=== PATIENT | male | born 1960 | race Caucasian/White ===

== ENCOUNTER 2023-04-22 13:04 | Inpatient (IN) | payer OTHER, SELFPAY ==
[2023-04-22 13:07] VITALS: BP 120/58; PULSE 63; RESP 14; TEMP 36.8; O2SAT 97
[2023-04-22 13:08] VITALS: BMI 26.3
--- NOTE | 2023-04-22 13:18 | EX.ED.DYSGE1 ---
HPI History of Present Illness Chief Complaint: [facility] Home Medications NK 04/22/23 [History Last Taken Unknown] Allergy/AdvReac Type Severity Reaction Status Date / Time propofol Allergy Severe OTHER Verified 04/22/23 13:06 azithromycin Allergy Vomiting Verified 06/04/15 12:25 [From Zithromax Z-Tristan] Surgical History no surgical history Social History Smoking Status: Never smoker EXAM Physical Exam Const Vital Signs: 04/22/23 13:07 04/22/23 13:56 04/22/23 14:20 Temperature 98.2 F Temperature Source Temporal Pulse Rate 63 Respiratory Rate 14 Respiratory Effort Normal Non-Labored Blood Pressure 120/58 L Blood Pressure Mean 78 Pulse Ox 97 95 Oxygen Delivery Method Room Air Room Air MDM MDM MDM Narrative Medical decision making narrative: HISTORY OF PRESENT ILLNESS: 62-year-old male here with concern for diffuse weakness, dizziness concern for low potassium and sodium. He states he has been ill with viral URI last week. Notes this morning developed 4 episodes of nonbloody nonbilious vomitus. Denies any chest pain or abdominal pain. Notes diarrhea as well. Denies any melena or hematochezia. Denies any focal weakness but notes diffuse weakness and fatigue. He states he went to his doctor this morning and they [facility] and they called stated his electrolytes were dangerously low and request the present to the ED. REVIEW OF SYSTEMS: Pertinent positives: Dizziness, diffuse weakness, nausea vomiting, diarrhea Pertinent negatives: Chest pain, abdominal pain, focal weakness PHYSICAL EXAM: Nursing triage notes reviewed, Vital signs reviewed Constitutional: please see mdm HENT: MMM Eyes: Pupils equal round and reactive to light, Extraocular muscles intact Neck: No stridor, no JVD, full neck ROM Lungs: Clear to auscultation, No wheezing or rales. No increased work of breathing, no conversational dyspnea, no accessory muscle use, no nasal flaring. No respiratory distress noted Heart: Regular rate and rhythm, No murmurs, No rubs and No gallops, 2+ distal pulses (radial, femoral, posterior tibial) in all extremities Abdomen: Soft, there is no tenderness, rigidity, rebound or guarding, no obvious peritoneal signs, no palpable pulsatile abdominal masses, no auscultated abdominal bruit : No CVAT Extremities: No edema Neuro: Alert and oriented x3, neuro exam at baseline, cranial nerves II through XII are intact. No pain with extraocular muscle movement. There is negative test of skew. 5 of 5 strength in upper and lower extremities in flexion extension. Intact sensation to light touch in upper and lower extremity dermatomes. No truncal or extremity ataxia. No dysdiadochokinesia. Normal gait. 2+ reflexes in upper and lower extremities. No meningeal signs. Negative Babinski. NIH of 0. Skin: No rash or lesions noted MEDICAL DECISION MAKING: Chief Complaint: Dizziness, weakness, abnormal labs External records reviewed: Prior chemistries reviewed prior potassium was 3.4, sodium 131 in June 2015. CMP from [facility] shows sodium 116, potassium 3.5 Factors affecting care: hyponatremia Social determinants of health: none History obtained from others: none Consults: internal medicine MDM Narrative: Patient was hemodynamically stable, afebrile, exam without focal neurologic deficit. I considered the following differential diagnosis: Electrolyte disturbance, dehydration, ACS, arrhythmia, anemia, CVA Patient no focal neurologic deficits. No focal weakness. His NIH was 0. Suspicion for CVA at this time. ALL IMAGES (IF OBTAINED) HAVE BEEN PERSONALLY REVIEWED AND INTERPRETED BY MYSELF. EKG with normal sinus rhythm, normal axis, normal intervals, no STEMI CBC with no leukocytosis to suggest systemic inflammation, mild anemia, no thrombocytopenia BMP with severe hyponatremia, no other significant electrolyte abnormalities, anion gap no KP High-sensitivity troponin is negative, no evidence of myocardial ischemia The synthesis of the patient's labs, images history and physical consistent with severe electrolyte abnormality likely from GI losses. Gave normal saline to start sodium repletion. Admitted for ongoing sodium replacement. The patient and/or family, caregivers express understanding. The patient and/or family, caregivers agrees with the plan. Shared decision making: I will have a discussion with the patient and or visitors regarding risk/benefits of further testing or admission. They will be made aware of of the risk/benefits inherent in this decision they will be given the opportunity to voice understanding. Total critical care time today provided was at least 0 minutes. This excludes separately billable procedures. Critical care time (if documented) is secondary to the patient having high probability of clinically significant/life threatening deterioration in the patient's condition which required my urgent intervention. Impression: 1. Hyponatremia 2. Nausea and vomiting 3. Anemia Dispo: Admit to PCU Lab Data Attestation: I reviewed the patient's lab results. Labs: Laboratory Results - last 24 hr 04/22/23 13:20 WBC 6.7 RBC 4.13 L Hgb 11.7 L Hct 32.9 L MCV 79.7 L MCH 28.3 MCHC 35.6 RDW Std Deviation 35.7 RDW Coeff of Karis 12.4 Plt Count 220 MPV 10.8 Immature Gran % (Auto) 0.600 Neut % (Auto) 69.3 Lymph % (Auto) 13.0 L [place] % (Auto) 13.5 H Eos % (Auto) 3.0 Baso % (Auto) 0.6 Absolute Neuts (auto) 4.6 Absolute Lymphs (auto) 0.87 Nucleated RBC % 0 Sodium 119 L* Potassium 4.0 Chloride 83 L Carbon Dioxide 27.0 Anion Gap 9 BUN 9 Creatinine 0.78 Est GFR (MDRD) Af Amer 128 Est GFR (MDRD) Non-Af 106 BUN/Creatinine Ratio 11.5 Glucose 110 H Calcium 9.5 Troponin I High Sens 6 Radiography Diagnostic Testing: Clinical Impression(s) from Imaging Studies Chest X-Ray 04/22/23 13:45 IMPRESSION: Stable hyperinflation with no acute or active cardiopulmonary disease. Electronically Signed: Migue Oneill MD at 14:19 EST , Discharge Plan Triage Chief Complaint: Abn Labs ED Provider: Asaf Corrales Dx/Rx/DC Orders Prescriptions: No Action NK Primary Care Provider: Devyn Ahn Referrals: Devyn Ahn MD [Primary Care Provider] -
--- NOTE | 2023-04-22 13:31 | EKG12_ITS ---
Test Reason : SOB Blood Pressure : / mmHG Vent. Rate : 070 BPM Atrial Rate : 070 BPM P-R Int : 184 ms QRS Dur : 092 ms QT Int : 448 ms P-R-T Axes : 053 058 042 degrees QTc Int : 483 ms Normal sinus rhythm Normal ECG Confirmed by ARCHIE CORDERO, HUAN ([id number]), newspaper copy editor ANJALI ULRICH ([id number]) on 04/24/2023 12:46:41 PM Referred By: Confirmed By:HUAN ALMANZA MD
[2023-04-22] MEDS: 0.9% Normal Saline (1000mL) 1,000 ML 1000 ML IV (13:41)
[2023-04-22 13:42] LABS: Absolute Lymphocyte Count 0.87 X10^3/uL (0.83-4.51); Absolute Neutrophil Count 4.6 X10^3/uL (2.0-7.7); Basophil# 0.04 X10^3/uL; Basophil% 0.6 % (0-1); Hematocrit 32.9 % (40-54); Hemoglobin 11.7 g/dL (13.0-16.5); Lymphocyte # 0.87 X10^3/ul (0.83-4.51); Mean Corp Hgb Conc 35.6 g/dL (32-36); Mean Corpuscular Hgb 28.3 pg (27.0-32.0); Mean Corpuscular Volume 79.7 fL (80-94); Mean Platelet Vol. 10.8 fl (6.2-12.0); Monocyte% 13.5 % (0-10); NRBC Flagged by Analyzer 0 % (0-5); Neutrophil # 4.62 X10^3/uL (2.7-7.7); Neutrophil % 69.3 % (47-70); Platelet Count 220 K/mm3 (150-450); RBC Distribution Width CV 12.4 % (11.6-14.6); RBC Distribution Width SD 35.7 fl (35.1-43.9); Red Blood Count 4.13 M/mm3 (4.6-6.2); White Blood Count 6.7 K/mm3 (4.4-11.0)
--- NOTE | 2023-04-22 13:45 | RAD_ITS ---
STUDY: X-RAY CHEST REASON FOR EXAM: Male, 62 years old. Fatigue. Weakness. TECHNIQUE: Single frontal view of the chest. COMPARISON: June 04, 2015. FINDINGS: Stable hyperinflation. There is no demonstrated pleural abnormality. Normal size heart. Normal mediastinum and irving. Normal visualized pulmonary arteries. Normal visualized aortic arch and descending thoracic aorta. Normal visualized thoracic spine. Normal visualized ribs, clavicles, and shoulders. No abnormality of the visualized soft tissue structures of the upper abdomen. RAD/Chest 1 View (Portable) IMPRESSION: Stable hyperinflation with no acute or active cardiopulmonary disease. Electronically Signed: Migue Oneill MD at 14:19 EST ,
[2023-04-22 14:18] LABS: Anion Gap 9 (5-15); BUN 9 mg/dL (7-18); BUN/Creat Ratio 11.5 RATIO (10-20); Calcium,Total 9.5 mg/dL (8.5-10.1); Chloride 83 mmol/L (98-107); Creatinine, Serum 0.78 mg/dL (0.70-1.30); EST Glomerular Filtration Rate 106 mL/min (>60); Est Glom Filt Rate - Afr Amer 128 mL/min (>60); Glucose 110 mg/dL (74-106); Sodium Level 119 mmol/L (136-145); Troponin-I HS 6 pg/mL (3.0-78.0)
[2023-04-22 14:20] VITALS: O2SAT 95
[2023-04-22 15:26] VITALS: BP 131/77; PULSE 64; RESP 15; RESP 16; TEMP 36.1; O2SAT 95
--- NOTE | 2023-04-22 15:35 | PCM.HP.STD ---
HPI - General General Date of Admission: 04/22/23 Date of Service: 04/22/23 Chief Complaint: Generalized weakness, nasal congestion HPI Narrative JASWANT HORTON, is a 62y/oM presented to [facility] 04/22 with weakness, dizziness and recent labs with low sodium. Patient had been ill with URI sx last week and this morning had 4 episodes of emesis. Yesterday he went to his physician and they [facility] and called him today stating his electrolytes were dangerously low and advised patient present to emergency department. In the ED he was found to have low sodium of 119 and given the degree of his hyponatremia with unclear chronicity hospitalist contacted for admission. Patient evaluated in ED with at bedside. Patient reports that he has generally felt unwell since last Saturday when he developed nasal congestion with significant secretions and sinus tenderness, initially also had a sore throat and has had an intermittent cough with some yellow-green sputum though not as much over the past day. Has also had some intermittent diarrhea over this past week. Has only taken Mucinex with only mild improvement. Went to PCP yesterday due to still feeling generally unwell and labs drawn and he was instructed to come back today. Patient has not been on any antibiotics, reports this morning that he did have an episode of sounded nausea and vomited 4 times in a row but had not had that before or after. Patient has had no fever. did have similar illness for several days but hers resolved completely without difficulty. [facility] Home Medications NK 04/22/23 [History Last Taken Unknown] Allergy/AdvReac Type Severity Reaction Status Date / Time propofol Allergy Severe OTHER Verified 04/22/23 15:38 azithromycin Allergy Vomiting Verified 04/22/23 15:38 [From Zithromax Z-Tristan] Surgical History no surgical history Social History Smoking Status: Never smoker ROS ROS Narrative General: Denies fever/chills HENT: Headache resolved, sore throat resolved but has significant nasal congestion EYES: Denies changes in vision Resp: Cough less productive than it had been, denies shortness of breath Cardiac: Denies chest pain GI: Denies abdominal pain, intermittent diarrhea, has had no further nausea or vomiting : Denies changes in urination Extremity: Denies swelling MSK: Generalized weakness Neuro: Denies any numbness/tingling Heme: Denies any bleeding or bruising Skin: Denies rashes Psychiatric: No complaints voiced Vital Signs Vital Signs Vital Signs: 04/22/23 13:07 04/22/23 13:56 04/22/23 14:20 Temperature 98.2 F Temperature Source Temporal Pulse Rate 63 Respiratory Rate 14 Respiratory Effort Normal Non-Labored Blood Pressure 120/58 L Blood Pressure Mean 78 Pulse Ox 97 95 Oxygen Delivery Method Room Air Room Air 04/22/23 15:26 04/22/23 15:26 Temperature 97 F L Temperature Source Pulse Rate 64 Respiratory Rate 15 16 Respiratory Effort Blood Pressure 131/77 H Blood Pressure Mean 95 Pulse Ox 95 Oxygen Delivery Method Physical Exam Narrative General: Alert, oriented, appears to feel unwell HEENT: Atraumatic, normocephalic, no erythema in throat, does have significant nasal congestion and possibly some sinus tenderness Eyes: Anicteric, normal conjunctiva, extraocular movements grossly intact Neck: Supple Respiratory: Clear to auscultation bilaterally, normal respiratory effort Cardiovascular: Regular rate and rhythm GI: Soft, nontender, nondistended Extremities: No edema Musculoskeletal: Moving all extremities Neuro: No overt focal neurological deficits Skin: No rashes appreciated Psych: Cooperative Results Lab / Micro Data 04/22/23 13:20 04/22/23 13:20 Labs: Laboratory Results - last 24 hr 04/22/23 13:20: WBC 6.7, RBC 4.13 L, Hgb 11.7 L, Hct 32.9 L, MCV 79.7 L, MCH 28.3, MCHC 35.6, RDW Std Deviation 35.7, RDW Coeff of Karis 12.4, Plt Count 220, MPV 10.8, Immature Gran % (Auto) 0.600, Neut % (Auto) 69.3, Lymph % (Auto) 13.0 L, [place] % (Auto) 13.5 H, Eos % (Auto) 3.0, Baso % (Auto) 0.6, Absolute Neuts (auto) 4.6, Absolute Lymphs (auto) 0.87, Nucleated RBC % 0, Sodium 119 L*, Potassium 4.0, Chloride 83 L, Carbon Dioxide 27.0, Anion Gap 9, BUN 9, Creatinine 0.78, Est GFR (MDRD) Af Amer 128, Est GFR (MDRD) Non-Af 106, BUN/Creatinine Ratio 11.5, Glucose 110 H, Calcium 9.5, Troponin I High Sens 6 Imagaing Radiology Impression Chest X-Ray 04/22/23 13:45 IMPRESSION: Stable hyperinflation with no acute or active cardiopulmonary disease. Electronically Signed: Migue Oneill MD at 14:19 EST , Assessment & Plan Assessment/Plan (1) Hyponatremia: PLAN: Plan #Generalized weakness and dizziness 2/2 hyponatremia -Sodium 119 in ED, unclear chronicity as last sodium Was 131 from 2016 -Possibly volume depletion given his diarrhea, poor p.o. intake due to his URI symptoms and his emesis -No recent sodium values available -We will get urine and serum osmole's -Urine studies -BMPs every 4 -I's and O's #URI symptoms -Patient has had symptoms for 6 days and did not have the classic improved then worsened that 1 would expect with bacterial and has not met the 10-day threshold -If symptoms worsen or continue to not improve may need to start empiric antibiotics however suspect this is viral -Obtain respiratory and COVID panels -Given diarrhea is a secondary complaint and is often on and seems to be associated with upper respiratory symptoms do not think the patient needs stool studies at this time the low threshold to do so if he has further episodes #DVT ppx: Lovenox subcu Nova Sheppard MD Time spent in the patient's overall evaluation,decision-making process, review of diagnostic data, adjustment of management, discussion with other providers, nursing nursing and ancillary staff involved in patient's care documentation, 55minutes Charges/Coding Visit Charges Inpatient E&M: 66388 Init Hosp L2
[2023-04-22 16:43] VITALS: PULSE 62; RESP 16; TEMP 36.1; O2SAT 96
[2023-04-22 16:47] VITALS: BMI 26.3
[2023-04-22 17:02] VITALS: BP 140/78; PULSE 62; RESP 16; TEMP 36.1; O2SAT 97
[2023-04-22 20:35] LABS: Anion Gap 7 (5-15); BUN 7 mg/dL (7-18); Calcium,Total 8.7 mg/dL (8.5-10.1); Chloride 85 mmol/L (98-107); Creatinine, Serum 0.64 mg/dL (0.70-1.30); EST Glomerular Filtration Rate 134 mL/min (>60); Est Glom Filt Rate - Afr Amer 163 mL/min (>60); Estimated Creatinine Clearance 127.99 ml/min; Glucose 112 mg/dL (74-106); Potassium 3.9 mmol/L (3.5-5.1); Sodium Level 118 mmol/L (136-145)
[2023-04-22 22:12] LABS: Osmolality, Serum 240 mOsm/KG (280-301)
[2023-04-22 22:27] VITALS: BP 124/61; PULSE 61; RESP 16; TEMP 37.3; O2SAT 94
[2023-04-22] MEDS: 0.9% Normal Saline (1000mL) 1,000 ML 70 ML IV (22:33)
[2023-04-22] MEDS: guaiFENesin 1,200 MG Tablet 1200 MG PO (22:36)
[2023-04-22 23:02] LABS: Urea Nitrogen, Urine 359 mg/dL (NO RANGE EST.); Urine Chloride 138 mmol/L (Not Establ.); Urine Sodium 139 mmol/L (Not Establ.)
[2023-04-22 23:12] LABS: Osmolality, Urine 481 mOsm/KG
[2023-04-23 02:01] LABS: Anion Gap 7 (5-15); BUN 6 mg/dL (7-18); BUN/Creat Ratio 9.5 RATIO (10-20); Calcium,Total 8.6 mg/dL (8.5-10.1); Chloride 84 mmol/L (98-107); Creatinine, Serum 0.63 mg/dL (0.70-1.30); EST Glomerular Filtration Rate 136 mL/min (>60); Est Glom Filt Rate - Afr Amer 165 mL/min (>60); Estimated Creatinine Clearance 130.02 ml/min; Glucose 103 mg/dL (74-106); Potassium 3.5 mmol/L (3.5-5.1); Sodium Level 118 mmol/L (136-145)
[2023-04-23] MEDS: 0.9% Normal Saline (1000mL) 1,000 ML 100 ML IV (02:55)
[2023-04-23 04:35] VITALS: BP 138/93; PULSE 61; RESP 18; TEMP 36.8; O2SAT 93
[2023-04-23 07:26] LABS: Absolute Lymphocyte Count 0.96 X10^3/uL (0.83-4.51); Absolute Neutrophil Count 3.7 X10^3/uL (2.0-7.7); Basophil# 0.05 X10^3/uL; Basophil% 0.9 % (0-1); Eosinophil# 0.15 X10^3/uL; Eosinophils% 2.7 % (0-5); Hematocrit 28.7 % (40-54); Hemoglobin 10.3 g/dL (13.0-16.5); Lymphocyte # 0.96 X10^3/ul (0.83-4.51); Lymphocyte % 17.1 % (19-41); Mean Corp Hgb Conc 35.9 g/dL (32-36); Mean Corpuscular Hgb 28.3 pg (27.0-32.0); Mean Corpuscular Volume 78.8 fL (80-94); Mean Platelet Vol. 10.5 fl (6.2-12.0); Monocyte# 0.73 X10^3/uL; NRBC Flagged by Analyzer 0 % (0-5); Neutrophil # 3.68 X10^3/uL (2.7-7.7); Neutrophil % 65.4 % (47-70); Platelet Count 186 K/mm3 (150-450); RBC Distribution Width CV 12.3 % (11.6-14.6); RBC Distribution Width SD 35.3 fl (35.1-43.9); Red Blood Count 3.64 M/mm3 (4.6-6.2); White Blood Count 5.6 K/mm3 (4.4-11.0)
[2023-04-23] MEDS: guaiFENesin 1,200 MG Tablet 1200 MG PO ×2 (08:02→21:31)
[2023-04-23] MEDS: Enoxaparin 40 MG/0.4 ML Syringe SC (08:02)
[2023-04-23 08:08] VITALS: BP 135/80; PULSE 58; RESP 16; TEMP 36.6; O2SAT 93
[2023-04-23 08:16] LABS: Anion Gap 6 (5-15); BUN 6 mg/dL (7-18); BUN/Creat Ratio 9.8 RATIO (10-20); Calcium,Total 8.7 mg/dL (8.5-10.1); Chloride 86 mmol/L (98-107); Creatinine, Serum 0.61 mg/dL (0.70-1.30); EST Glomerular Filtration Rate 141 mL/min (>60); Est Glom Filt Rate - Afr Amer 171 mL/min (>60); Estimated Creatinine Clearance 134.28 ml/min; Glucose 108 mg/dL (74-106); Magnesium 1.9 mg/dL (1.6-2.6); Potassium 3.6 mmol/L (3.5-5.1); Sodium Level 118 mmol/L (136-145)
--- NOTE | 2023-04-23 11:40 | PCM.PN.HOSP ---
Subjective Subjective Continues to have URI symptoms however respiratory panel is normal. No improvement in his sodium Objective Data Objective Data Vital Signs: Vital Signs Temp Pulse Resp BP Pulse Ox O2 Del Method 97.8 F 58 L 16 135/80 H 93 Room Air 04/23/23 08:08 04/23/23 08:08 04/23/23 08:08 04/23/23 08:08 04/23/23 08:08 04/23/23 08:41 Oxygen Delivery Method Room Air Weight: 194 lb 0.108 oz Body Mass Index (BMI) 26.3 Intake & Output: Intake and Output for Last 24 Hours 04/22/23 04/23/23 04/24/23 03:59 03:59 03:59 Intake Total 1220 / 1220 636.33 / 636.33 Balance 1220 / 1220 636.33 / 636.33 Lab / Micro Data 04/23/23 07:05 04/23/23 07:05 Labs: Laboratory Results - last 24 hr 04/22/23 13:20: WBC 6.7, RBC 4.13 L, Hgb 11.7 L, Hct 32.9 L, MCV 79.7 L, MCH 28.3, MCHC 35.6, RDW Std Deviation 35.7, RDW Coeff of Karis 12.4, Plt Count 220, MPV 10.8, Immature Gran % (Auto) 0.600, Neut % (Auto) 69.3, Lymph % (Auto) 13.0 L, [place] % (Auto) 13.5 H, Eos % (Auto) 3.0, Baso % (Auto) 0.6, Absolute Neuts (auto) 4.6, Absolute Lymphs (auto) 0.87, Nucleated RBC % 0, Sodium 119 L*, Potassium 4.0, Chloride 83 L, Carbon Dioxide 27.0, Anion Gap 9, BUN 9, Creatinine 0.78, Est GFR (MDRD) Af Amer 128, Est GFR (MDRD) Non-Af 106, BUN/Creatinine Ratio 11.5, Glucose 110 H, Calcium 9.5, Magnesium 2.0, Troponin I High Sens 6 04/22/23 19:53: Sodium 118 L*, Potassium 3.9, Chloride 85 L, Carbon Dioxide 26.0, Anion Gap 7, BUN 7, Creatinine 0.64 L, Estim Creat Clear Calc 127.99, Est GFR (MDRD) Af Amer 163, Est GFR (MDRD) Non-Af 134, BUN/Creatinine Ratio 11.0, Glucose 112 H, Calcium 8.7 04/22/23 20:20: Urine Osmolality 481, Ur Random Sodium 139, Urine Creatinine 68.80, Urine Potassium 24.0, Urine Chloride 138, Urine Urea Nitrogen 359 04/22/23 21:03: Serum Osmolality 240 L 04/23/23 01:20: Sodium 118 L*, Potassium 3.5, Chloride 84 L, Carbon Dioxide 27.0, Anion Gap 7, BUN 6 L, Creatinine 0.63 L, Estim Creat Clear Calc 130.02, Est GFR (MDRD) Af Amer 165, Est GFR (MDRD) Non-Af 136, BUN/Creatinine Ratio 9.5 L, Glucose 103, Calcium 8.6 04/23/23 07:05: WBC 5.6, RBC 3.64 L, Hgb 10.3 L, Hct 28.7 L, MCV 78.8 L, MCH 28.3, MCHC 35.9, RDW Std Deviation 35.3, RDW Coeff of Karis 12.3, Plt Count 186, MPV 10.5, Immature Gran % (Auto) 0.900, Neut % (Auto) 65.4, Lymph % (Auto) 17.1 L, [place] % (Auto) 13.0 H, Eos % (Auto) 2.7, Baso % (Auto) 0.9, Absolute Neuts (auto) 3.7, Absolute Lymphs (auto) 0.96, Nucleated RBC % 0, Sodium 118 L*, Potassium 3.6, Chloride 86 L, Carbon Dioxide 26.0, Anion Gap 6, BUN 6 L, Creatinine 0.61 L, Estim Creat Clear Calc 134.28, Est GFR (MDRD) Af Amer 171, Est GFR (MDRD) Non-Af 141, BUN/Creatinine Ratio 9.8 L, Glucose 108 H, Calcium 8.7, Phosphorus 3.0, Magnesium 1.9, TSH 0.90 Micro: Microbiology 04/22/23 17:30 Mucosa - Nose Respiratory Panel (PCR) - Final Radiography Diagnostic Testing: Radiology Impression Chest X-Ray 04/22/23 13:45 IMPRESSION: Stable hyperinflation with no acute or active cardiopulmonary disease. Electronically Signed: Migue Oneill MD at 14:19 EST , Physical Exam Narrative General: Alert, Oriented x3, Cooperative, No apparent distress HEENT: Atraumatic, PERRLA, EOMI, Normocephalic, nasal congestion Oral: Moist Mucosa Neck: Supple, No JVD Lungs: Clear to auscultation, Normal air movement, No rhonchi, No wheeze, No rales Cardiovascular: Regular rate, Regular Rhythm, Normal S1, Normal S2, No murmurs Abdomen: Soft, Non Tender, Non-Distended, No Hepato-splenomegaly Extremities: No edema, Capillary Refill Less than 3 Seconds Skin: No rashes, No breakdown Musculoskeletal: No Tenderness to Palpation of Joints or Extremities Neurological: Cranial nerves II-XII grossly intact, Motor Exam 5/5 strength throughout, Sensory exam intact to light touch and pain Psych/Mental Status: Normal Affect, Appropriate Assessment & Plan Assessment/Plan (1) Hyponatremia: PLAN: Plan 1. 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 Urine sodium is elevated with a low serum osmolality and elevated urine osmolality ? We will place him on a fluid restriction and discontinue his IV fluids ? We will continue to monitor sodium repeat in the morning 2. URI ? Likely viral though COVID and flu testing was negative as well as a respiratory panel prior to admission. ? No fevers and no leukocytosis ? Does not appear that he got better then got worse so unclear whether or not he has a bacterial cause DVT: [employer] Charges/Coding Visit Charges Inpatient E&M: 69034 Subs Hosp L2
[2023-04-23 14:00] VITALS: BP 132/68; PULSE 55; RESP 17; TEMP 36.8; O2SAT 93
--- NOTE | 2023-04-23 14:15 | CASEMGMT ---
RN?CM?BOILER FIREMAN?CM?to room for initial transition planning/care coordination?assessment.?Pt resting in bed, sleeping. at bedside. RN?CM?introduced self and role at [facility].? voices understanding and consents to?assessment?at this time.? Care providers, pharmacy, and demographics verified/updated at this time with . Pt did wake up @ end of assessment and provided some additional info. PCP: Pt used to see Dr Ahn, but last seen was about 10 years ago. Initially stated to see if he would take pt back again, but then pt woke up and stated he would prefer not to go back to him. Pt and given local PCP directory to review and instructed to let CM know if they need/want assistance w/getting an appt to get established w/a new PCP. Specialists: none Preferred Pharmacy: [facility] Retail Insurance: Medical [place] Prescription Benefit:?Yes Living Will/HPOA:?Has both LW and HCPOA, who is his , Dionne LNOK: , Dionne Living Arrangements: Lives w/his in ranch-style home w/1-3 steps to enter. Independent. Transportation:?Pt and DME: ? Denies using any DME and denies needs.? HHC/SNF:No hx of either, denies needs, and no needs identified. Pt wishes to return home and states has no concerns with going home at time of discharge.? CM?to follow for any further discharge planning/needs.? Pt and voice no further concerns/needs at this time.? Advised them to ask for?CM?if any further questions/concerns/needs arise.? They voice understanding. PLAN:??Home Nico SCOTTN?RN?CM
--- NOTE | 2023-04-23 14:20 | CHAPLAIN ---
Type of Pastoral Visit _x__ Initial Visit ___ Follow-up Visit ___ On-call Visit ___ General Patient Visit ___ Spiritual Assessment ___ Family Conference ___ Bereavement ___ Rapid Response ___ Code Blue ___ Other (describe below) Pastoral Care Referral From _x__ Patient ___ Family ___ Nurse ___ Physician ___ Housecleaner Floor ___ Memorial Designer ___ Other (describe below) Sacrament/Intervention ___ Active listening ___ Anointing ___ Synagogue ___ Bereavement ___ Communion ___ Pallavi exploration ___ ___ Life review ___ Prayer ___ Reconciliation ___ Sacrament of Sick _x_ Supportive presence ___ Wedding ___ Other (describe below) Pastoral Comments patient reports that he is okay and waiting for results; spouse is more engaged and welcoming of spiritual care support
[2023-04-23 21:27] VITALS: BP 125/67; PULSE 65; RESP 16; TEMP 37.2; O2SAT 93
[2023-04-24 04:10] LABS: Absolute Neutrophil Count 3.4 X10^3/uL (2.0-7.7); Basophil# 0.05 X10^3/uL; Basophil% 0.9 % (0-1); Eosinophil# 0.19 X10^3/uL; Eosinophils% 3.5 % (0-5); Hematocrit 28.2 % (40-54); Hemoglobin 10.2 g/dL (13.0-16.5); Lymphocyte % 18.4 % (19-41); Mean Corp Hgb Conc 36.2 g/dL (32-36); Mean Corpuscular Hgb 28.6 pg (27.0-32.0); Mean Platelet Vol. 10.5 fl (6.2-12.0); Monocyte# 0.73 X10^3/uL; Monocyte% 13.4 % (0-10); NRBC Flagged by Analyzer 0 % (0-5); Neutrophil # 3.38 X10^3/uL (2.7-7.7); Neutrophil % 62.3 % (47-70); Platelet Count 227 K/mm3 (150-450); RBC Distribution Width CV 12.4 % (11.6-14.6); RBC Distribution Width SD 35.6 fl (35.1-43.9); Red Blood Count 3.57 M/mm3 (4.6-6.2); White Blood Count 5.4 K/mm3 (4.4-11.0)
[2023-04-24 04:15] VITALS: BP 133/76; PULSE 56; RESP 16; TEMP 36.8; O2SAT 92
[2023-04-24 04:42] LABS: Anion Gap 10 (5-15); BUN 6 mg/dL (7-18); BUN/Creat Ratio 10.7 RATIO (10-20); Calcium,Total 8.4 mg/dL (8.5-10.1); Chloride 85 mmol/L (98-107); Creatinine, Serum 0.56 mg/dL (0.70-1.30); EST Glomerular Filtration Rate 155 mL/min (>60); Est Glom Filt Rate - Afr Amer 187 mL/min (>60); Estimated Creatinine Clearance 146.27 ml/min; Glucose 107 mg/dL (74-106); Potassium 3.7 mmol/L (3.5-5.1); Sodium Level 120 mmol/L (136-145)
[2023-04-24 10:00] VITALS: BP 128/72; PULSE 57; RESP 16; TEMP 35.2; O2SAT 95
--- NOTE | 2023-04-24 10:04 | CT_ITS ---
INDICATION: Eval for cancer in setting SIADH EXAMINATION: CT CHEST WITH CONTRAST - CT Chest W/ Contrast Injection TECHNIQUE: Helically acquired images were obtained of the chest following IV contrast. A radiation dose optimization technique was used for this scan. IV Contrast dosage and agent: RADIATION DOSAGE (If Supplied By Facility): CTDIvol = ( 14.26 ) mGy, DLP = ( 427.44 ) mGycm COMPARISON: FINDINGS: LUNGS, PLEURA AND LARGE AIRWAYS: Basilar consolidation/atelectasis, right more than left. Left pulmonary granuloma.. Right upper lobe 5 mm nodule along the minor fissure likely granulomatous in nature. No pleural effusion or thickening. No pneumothorax. THYROID: No thyroid lesions. HEART AND PERICARDIUM: Heart size is normal. No pericardial effusion. VESSELS: Thoracic aorta is not dilated. No aortic dissection. No obvious central pulmonary embolism although this study was not performed with the pulmonary embolism protocol. MEDIASTINUM AND JACLYN: Left hilar granulomatous calcifications. Esophagus is unremarkable. No hiatal hernia. UPPER ABDOMEN: No acute pathology. BONES: No suspicious lytic or blastic abnormality. CT/Chest WITH Contrast IMPRESSION: Basilar consolidation/atelectasis, right more than left. Bilateral pulmonary granulomatous nodules and calcifications. Electronically Signed: Fabrice Carr DO at 20:21 [facility] [place] Location ID and State: [facility] / [place] Tel [phone], Service support ,
--- NOTE | 2023-04-24 10:54 | PCM.PN.HOSP ---
Subjective Subjective Doing well, no issues overnight. Feels that his nasal congestion is improving Objective Data Objective Data Vital Signs: Vital Signs Temp Pulse Resp BP Pulse Ox O2 Del Method 98.2 F 56 L 16 133/76 H 92 Room Air 04/24/23 04:15 04/24/23 04:15 04/24/23 04:15 04/24/23 04:15 04/24/23 04:15 04/24/23 04:51 Oxygen Delivery Method Room Air Weight: 194 lb 0.108 oz Body Mass Index (BMI) 26.3 Intake & Output: Intake and Output for Last 24 Hours 04/23/23 04/24/23 04/25/23 03:59 03:59 03:59 Intake Total 1220 / 1220 1843.00 / 1843.00 250 / 250 Balance 1220 / 1220 1843.00 / 1843.00 250 / 250 Lab / Micro Data 04/24/23 03:50 04/24/23 03:50 Labs: Laboratory Results - last 24 hr 04/24/23 03:50: WBC 5.4, RBC 3.57 L, Hgb 10.2 L, Hct 28.2 L, MCV 79.0 L, MCH 28.6, MCHC 36.2 H, RDW Std Deviation 35.6, RDW Coeff of Karis 12.4, Plt Count 227, MPV 10.5, Immature Gran % (Auto) 1.500 H, Neut % (Auto) 62.3, Lymph % (Auto) 18.4 L, [place] % (Auto) 13.4 H, Eos % (Auto) 3.5, Baso % (Auto) 0.9, Absolute Neuts (auto) 3.4, Absolute Lymphs (auto) 1.00, Nucleated RBC % 0, Sodium 120 L, Potassium 3.7, Chloride 85 L, Carbon Dioxide 25.0, Anion Gap 10, BUN 6 L, Creatinine 0.56 L, Estim Creat Clear Calc 146.27, Est GFR (MDRD) Af Amer 187, Est GFR (MDRD) Non-Af 155, BUN/Creatinine Ratio 10.7, Glucose 107 H, Calcium 8.4 L, Cortisol 3.20 L Micro: Microbiology 04/22/23 17:30 Mucosa - Nose Respiratory Panel (PCR) - Final Physical Exam Narrative General: Alert, Oriented x3, Cooperative, No apparent distress HEENT: Atraumatic, PERRLA, EOMI, Normocephalic, nasal congestion Oral: Moist Mucosa Neck: Supple, No JVD Lungs: Clear to auscultation, Normal air movement, No rhonchi, No wheeze, No rales Cardiovascular: Regular rate, Regular Rhythm, Normal S1, Normal S2, No murmurs Abdomen: Soft, Non Tender, Non-Distended, No Hepato-splenomegaly Extremities: No edema, Capillary Refill Less than 3 Seconds Skin: No rashes, No breakdown Musculoskeletal: No Tenderness to Palpation of Joints or Extremities Neurological: Cranial nerves II-XII grossly intact, Motor Exam 5/5 strength throughout, Sensory exam intact to light touch and pain Psych/Mental Status: Normal Affect, Appropriate Assessment & Plan Assessment/Plan (1) Hyponatremia: PLAN: Plan 1. 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 Urine sodium is elevated with a low serum osmolality and elevated urine osmolality ? We will give him a dose of tolvaptan 15 mg x 1 and discontinue his fluid restriction, will obtain a cortisol and a CT of his chest to further evaluate for his SIADH and will likely need follow-up with nephrology as well as salt tablets on discharge ? He did have some improvement in his sodium today to 120 we will continue to monitor ? Daily medication he took [id number] with Mucinex 2. URI-resolving ? Likely viral though COVID and flu testing was negative as well as a respiratory panel prior to admission. ? No fevers and no leukocytosis ? Does not appear that he got better then got worse so unclear whether or not he has a bacterial cause DVT: Lissynox Charges/Coding Visit Charges Inpatient E&M: 10757 Subs Hosp L2
[2023-04-24] MEDS: Enoxaparin 40 MG/0.4 ML Syringe SC (11:14)
[2023-04-24] MEDS: guaiFENesin 1,200 MG Tablet 1200 MG PO ×2 (11:15→21:16)
[2023-04-24] MEDS: TOLVAPTAN 15 MG TABLET PO (11:28)
[2023-04-24] MEDS: 0.9% Saline Lock 10 ML Syringe IV (11:29)
[2023-04-24 16:00] VITALS: BP 125/70; PULSE 55; RESP 18; TEMP 35.4; O2SAT 96
[2023-04-24 22:00] VITALS: BP 102/62; PULSE 59; RESP 16; TEMP 36.9; O2SAT 92
[2023-04-25] VITALS: BP 102/62; PULSE 59; RESP 16; TEMP 36.9; O2SAT 92
[2023-04-25 04:00] VITALS: BP 138/84; PULSE 63; RESP 16; TEMP 36.8; O2SAT 96
[2023-04-25 05:21] VITALS: BP 138/84; PULSE 63; RESP 16; TEMP 36.8; O2SAT 96
[2023-04-25 07:54] LABS: Anion Gap 5 (5-15); BUN 7 mg/dL (7-18); BUN/Creat Ratio 9.3 RATIO (10-20); Calcium,Total 9.7 mg/dL (8.5-10.1); Chloride 95 mmol/L (98-107); Creatinine, Serum 0.75 mg/dL (0.70-1.30); EST Glomerular Filtration Rate 111 mL/min (>60); Est Glom Filt Rate - Afr Amer 135 mL/min (>60); Estimated Creatinine Clearance 109.21 ml/min; Glucose 106 mg/dL (74-106); Potassium 4.2 mmol/L (3.5-5.1); Sodium Level 129 mmol/L (136-145)
[2023-04-25] MEDS: guaiFENesin 1,200 MG Tablet 1200 MG PO (08:17)
[2023-04-25] MEDS: Enoxaparin 40 MG/0.4 ML Syringe SC (08:17)
[2023-04-25 08:25] VITALS: BP 115/74; PULSE 65; RESP 18; TEMP 36.6; O2SAT 93
--- NOTE | 2023-04-25 11:40 | PN.HOSP_ITS ---
Reason for Visit Reason for Visit: Diagnoses Hypo-osmolality and hyponatremia (04/22/23) Subjective Subjective Patient is a 62-year-old gentleman with no chronic medical problems presented with progressive generalized weakness. Patient was found to have severe hyponatremia with sodium level of 119 admitted to monitored bed for further management Objective Data Objective Data Vital Signs: Vital Signs Temp Pulse Resp BP Pulse Ox O2 Del Method 97.9 F 65 18 115/74 93 Room Air 04/25/23 08:25 04/25/23 08:25 04/25/23 08:25 04/25/23 08:25 04/25/23 08:25 04/25/23 08:25 Oxygen Delivery Method Room Air Weight: 88 kg Body Mass Index (BMI) 26.3 Intake & Output: Intake and Output for Last 24 Hours 04/23/23 04/24/23 04/25/23 23:59 23:59 23:59 Intake Total 1843.00 / 1843.00 1250 / 1270 Output Total 600 / 600 0 / 0 Balance 1843.00 / 1843.00 650 / 670 Lab / Micro Data 04/24/23 03:50 04/25/23 05:52 Labs: Laboratory Results - last 24 hr 04/25/23 05:52: Sodium 129 L, Potassium 4.2, Chloride 95 L, Carbon Dioxide 29.0, Anion Gap 5, BUN 7, Creatinine 0.75, Estim Creat Clear Calc 109.21, Est GFR (MDRD) Af Amer 135, Est GFR (MDRD) Non-Af 111, BUN/Creatinine Ratio 9.3 L, Glucose 106, Calcium 9.7 Micro: Microbiology 04/22/23 17:30 Mucosa - Nose Respiratory Panel (PCR) - Final Radiography Diagnostic Testing: Radiology Impression Chest CT 04/24/23 10:04 IMPRESSION: Basilar consolidation/atelectasis, right more than left. Bilateral pulmonary granulomatous nodules and calcifications. Electronically Signed: Fabrice Carr DO at 20:21 EST Reading Location ID and State: [facility] / [place] Tel [phone], Service support , Physical Exam Narrative GENERAL: cooperative HEENT: Atraumatic; normocephalic EYES; Anicteric, Normal Conjunctiva NECK; supple, normal thyroid, RESPIRATORY: Diminished to auscultation CARDIOVASCULAR: Regular S1 S2, GI: soft, normoactive bowel sounds, : No Renal angle tenderness; EXTREMITIES: No edema, no clubbing, MUSCULOSKELETAL: no muscle wasting NEURO: Awake; no lateralizing signs. SKIN: No Rash PSYCH; Flat affect Assessment & Plan Assessment/Plan (1) Hyponatremia: PLAN: Plan Patient is a 62-year-old gentleman with no chronic medical problems presented with progressive generalized weakness. Patient was found to have severe hyponatremia with sodium level of 119 admitted to monitored bed for further management 1. Symptomatic hyponatremia ? 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 Patient underwent CT of the chest which demonstrated bibasilar atelectasis/consolidation no evidence of mass. Patient did receive tolvaptan with subsequent monitoring of sodium levels ordered. Repeat BMP ordered for a.m. with plans to discharge in a.m. if sodium levels stay above 130. Patient may need to undergo age- related cancer screening as outpatient. Currently does not have any primary care physician plan is to provide patient with PCPs in the area currently taking on new patients 2. Upper respiratory tract infection ? Patient workup including flu and COVID so far negative to date 3. DVT prophylaxis ? SC Lovenox Time spent in the patient's overall evaluation,decision-making process, review of diagnostic data, adjustment of management, discussion with other providers, nursing nursing and ancillary staff involved in patient's care documentation, 35 Minutes Charges/Coding Visit Charges Inpatient E&M: 76960 Subs Hosp L2
[2023-04-25 13:31] LABS: Anion Gap 8 (5-15); BUN 7 mg/dL (7-18); BUN/Creat Ratio 10.1 RATIO (10-20); Calcium,Total 9.3 mg/dL (8.5-10.1); Chloride 96 mmol/L (98-107); Creatinine, Serum 0.69 mg/dL (0.70-1.30); EST Glomerular Filtration Rate 122 mL/min (>60); Est Glom Filt Rate - Afr Amer 148 mL/min (>60); Estimated Creatinine Clearance 118.71 ml/min; Glucose 97 mg/dL (74-106); Sodium Level 131 mmol/L (136-145)
--- NOTE | 2023-04-25 14:02 | DS.PCM_ITS ---
Providers Date of Admission: 04/22/23 Date of Discharge: 04/25/23 Primary Care Physician: No Primary Care Phys Reason For Visit: HYPONATREMIA Diagnosis Discharge Diagnosis (1) Hyponatremia: Status: Acute Code(s): E87.1 - Hypo-osmolality and hyponatremia Plan Patient is a 62-year-old gentleman with no chronic medical problems presented with progressive generalized weakness. Patient was found to have severe hyponatremia with sodium level of 119 admitted to monitored bed for further management 1. Symptomatic hyponatremia ? 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 Patient underwent CT of the chest which demonstrated bibasilar atelectasis/consolidation no evidence of mass. Patient did receive tolvaptan with subsequent monitoring of sodium levels ordered. Repeat BMP ordered for a.m. with plans to discharge in a.m. if sodium levels stay above 130. Patient may need to undergo age- related cancer screening as outpatient. Currently does not have any primary care physician plan is to provide patient with PCPs in the area currently taking on new patients patient was provided with a list to call to schedule appointment 2. Upper respiratory tract infection ? Patient workup including flu and COVID so far negative to date 3. DVT prophylaxis ? SC Lovenox Time spent in the patient's overall evaluation,decision-making process, review of diagnostic data, adjustment of management, discussion with other providers, nursing nursing and ancillary staff involved in patient's care documentation, 35 Minutes Medications at Discharge Home Medications NK 04/22/23 Hospital Course Summary of Care Provided Minutes Spent on Discharge: 35 Physical Exam Narrative GENERAL: cooperative HEENT: Atraumatic; normocephalic EYES; Anicteric, Normal Conjunctiva NECK; supple, normal thyroid, RESPIRATORY: Diminished to auscultation CARDIOVASCULAR: Regular S1 S2, GI: soft, normoactive bowel sounds, : No Renal angle tenderness; EXTREMITIES: No edema, no clubbing, MUSCULOSKELETAL: no muscle wasting NEURO: Awake; no lateralizing signs. SKIN: No Rash PSYCH; Flat affect Weight / BMI Weight Weight: 88 kg Body Mass Index (BMI) 26.3 ABG / Lab / Microbiology Data 04/24/23 03:50 04/25/23 12:20 Laboratory: Laboratory Results - last 24 hr 04/25/23 05:52: Sodium 129 L, Potassium 4.2, Chloride 95 L, Carbon Dioxide 29.0, Anion Gap 5, BUN 7, Creatinine 0.75, Estim Creat Clear Calc 109.21, Est GFR (MDRD) Af Amer 135, Est GFR (MDRD) Non-Af 111, BUN/Creatinine Ratio 9.3 L, Glucose 106, Calcium 9.7 04/25/23 12:20: Sodium 131 L, Potassium 4.0, Chloride 96 L, Carbon Dioxide 27.0, Anion Gap 8, BUN 7, Creatinine 0.69 L, Estim Creat Clear Calc 118.71, Est GFR (MDRD) Af Amer 148, Est GFR (MDRD) Non-Af 122, BUN/Creatinine Ratio 10.1, Glucose 97, Calcium 9.3 Microbiology: Microbiology 04/22/23 17:30 Mucosa - Nose Respiratory Panel (PCR) - Final Radiography Diagnostic Testing: Radiology Impression Chest CT 04/24/23 10:04 IMPRESSION: Basilar consolidation/atelectasis, right more than left. Bilateral pulmonary granulomatous nodules and calcifications. Electronically Signed: Fabrice Carr DO at 20:21 EST Reading Location ID and State: [address] [place] [address] Tel [phone], Service support , D/C Instructions Discharge Diet: No restrictions Discharge Activity: Return to Normal Activity Call your doctor if you observe: Fever of 101 or Higher, Shortness of breath, Fainting spells and Chest pain Meaningful Use Info Meaningful Use Diagnoses (Choose all that apply): None applicable Discharge Plan Admission Admit Date/Time: 04/22/23 15:35 Attending Provider: Abhijit Tovar Primary Care Provider: Care Physician,No Primary Consulting Providers: Nova Sheppard; Bruce Martínez Discharge Orders/Prescriptions Prescriptions: No Action NK Referrals / Follow Up: Devyn Ahn MD [Med Staff - Computer Networking Instructor] - Care Physician,No Primary [Primary Care Provider] - Disposition Disposition (needs filled in before D/C Order can be placed): Home, Self Care Charges/Coding Visit Charges Inpatient E&M: 37652 Disch Hosp >30min
[2023-04-25 14:03] VITALS: BP 119/66; PULSE 67; RESP 18; TEMP 36.9; O2SAT 93
== END 2023-04-25 15:14 | disposition home or self-care (01) | DRG 645 ==
LOC: ED 14:09 → PCU 15:56
PROVIDERS: Family Medicine; Admitting Provider Internal Medicine; Emergency Provider Emergency Medicine; Visit Provider Internal Medicine
DX: E22.2 Syndrome of inappropriate secretion of antidiuretic hormone (principal); J06.9 Acute upper respiratory infection, unspecified
CPT/HCPCS: 36415; 71045; 71260; 80048; 82436; 82533; 82570; 83735; 83930; 83935; 84100; 84133; 84300; 84443; 84484; 84540; 85025; 87633; 93005; 99285; J7030; Q9967; A4216